=== PATIENT | female | born 1965 | race African-American/Black ===

== ENCOUNTER 2024-09-21 13:39 | Emergency (ER) | payer OTHER, SELFPAY ==
[2024-09-21] VITALS (20 sets, daily range): BP systolic 162–193; BP diastolic 78–98; PULSE 87–104; RESP 18; TEMP 37.1; O2SAT 95–100; BMI 33.2
--- NOTE | 2024-09-21 14:08 | CRLHL7_ITS ---
For Patients: As a result of the Century Cures Act, medical imaging exams and procedure reports are released immediately into your electronic medical record. You may view this report before your referring provider. If you have questions, please contact your health care provider. INDICATION: Fall. COMPARISON: None available. TECHNIQUE: CT of the cervical spine without intravenous contrast. Please note that all CT scans at this facility use dose modulation, iterative reconstruction, and/or weight-based dosing when appropriate to reduce radiation dose to as low as reasonably achievable. FINDINGS: Alignment: No significant spondylolisthesis, widening of the intervertebral disc spaces, interfacetal joints or interspinous distances. Vertebrae: Vertebral bodies, pedicles, laminae, articular, transverse and spinous processes are intact. 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 Soft Tissues: No perivertebral edema or hemorrhage. Extraspinal Anatomy: No significant findings. IMPRESSION: No acute traumatic injury is identified. Incidental findings described in the body of the report. Please note that all CT scans at this facility use dose modulation, iterative reconstruction, and/or weight-based dosing when appropriate to reduce radiation dose to as low as reasonably achievable. Dictated by Kem Stanley MD @ 09/21/2024 3:08:06 PM (Electronically Signed)
--- NOTE | 2024-09-21 14:09 | CRLHL7_ITS ---
For Patients: As a result of the Century Cures Act, medical imaging exams and procedure reports are released immediately into your electronic medical record. You may view this report before your referring provider. If you have questions, please contact your health care provider. INDICATION: FALL, STROKE LIKE SYMPTOMS. TECHNIQUE: CT head without contrast. COMPARISON: None. FINDINGS: CSF spaces: Within normal limits for age. Brain parenchyma and extra-axial spaces: No evident territorial loss of neal-white differentiation to suggest an acute transcortical infarction. No sign of acute ischemia. No sign of mass, hemorrhage, or midline shift. No extra-axial fluid collection. Skull base and calvarium: The visualized paranasal sinuses and mastoid air cells demonstrate no acute or significant findings. The visualized orbits are grossly unremarkable. No skull fractures. Mild focal right occipital scalp thickening, nonspecific IMPRESSION: Unremarkable noncontrast head CT. No sign of acute ischemia or intracranial hemorrhage. Please note that all CT scans at this facility use dose modulation, iterative reconstruction, and/or weight-based dosing when appropriate to reduce radiation dose to as low as reasonably achievable. Dictated by Geo Rodriguez MD @ 09/21/2024 3:03:28 PM (Electronically Signed)
--- NOTE | 2024-09-21 14:13 | ED_ITS ---
HPI - General Adult General Chief complaint: Headache/Migraine Stated complaint: Found on floor 09/19-left side numb, headache Time Seen by Provider: 09/21/24 13:50 History of Present Illness HPI narrative: This is a very pleasant 59-year-old female who presents to the ER today with her friends. History is obtained in part from the patient and in part from her friends. She has a past medical history of diabetes, hypertension, dyslipidemia. She is currently on insulin, a statin, and amlodipine. She also reports that she had a history of angina some years ago that was treated medically at home in [facility]. She is here visiting her friends over the short term. She was at her friend's house sleeping. Two nights ago she got out of bed and fell. It is unclear why she fell. At times she says she does not remember falling so, and other times she says she remembers falling and recalls that she did not hit her head. Ever since falling she has had weakness and numbness on the left side of her body (face, arm, and leg). She has also had a headache. Symptoms are not getting better. Headache is actually getting slightly worse. Her friends convinced her to come here to the ER today. She does not take any anticoagulants. No history of stroke. No other previous focal weaknesses. She was not sick before she fell. No recent cough or fever. No vomiting or diarrhea. Related Data Home Medications ?Medication ?Instructions ?Recorded ?Confirmed No Known Home Medications 09/21/24 09/21/24 Allergies Allergy/AdvReac Type Severity Reaction Status Date / Time No Known Drug Allergies Allergy Verified 09/21/24 13:51 PFSH [facility] Social History Smoking Status: Never smoker How often do you have a drink containing alcohol: never AUDIT-C Alcohol total score: 0 Non-prescribed substance use: denies use Exam Narrative: Exam Narrative: Primary Survey: A- patent. Speaking clearly. Phonation normal. No stridor. B- breathing easily. Lung sounds clear and equal. Oxygen saturation normal on room air C- no active bleeding. Blood pressure stable. Symmetric pulses and cap refill in 4 extremities. D- alert and oriented x3. GCS 15. No focal deficits. Constitutional: Appears well-developed and well-nourished. Alert. Conversant. Non toxic. HENT: Head: Atraumatic. Nose: Nose normal. Mouth/Throat: Oral mucosa is clear and moist. no trismus. Pharynx normal. Tonsils symmetric. No tonsillar enlargement, erythema, or exudate. Eyes: Conjunctivae normal. EOM normal. Pupils equal, round, and reactive to light. No scleral icterus. Neck: Normal range of motion. Neck supple. No tracheal deviation present. Cardiovascular: Normal rate, regular rhythm. No gallop. No friction rub. No murmur heard. Symmetric radial and PT artery pulses Pulmonary/Chest: Effort normal. No stridor. No respiratory distress. No wheezes. No rales. No rhonchi . No tenderness. Abdominal: Soft. Bowel sounds normal. No distension. No mass. No tenderness. No rebound. No guarding. Musculoskeletal: RUE: Normal range of motion. No tenderness. No deformity LUE: Normal range of motion. No tenderness. No deformity RLE: Normal range of motion. No edema. No tenderness. No deformity LLE: Normal range of motion. No edema. No tenderness. No deformity Neurological: She is alert and oriented x3. Speech is fluent. She has a pleasant accident but no slurred speech. No dysarthria. No word-finding difficulties. Memory seems intact although she is a bit vague about details of the fall 2 days ago. She has subjective paresthesias affecting her left face including the forehead, cheek, and chin. No obvious facial droop. Tongue protrudes midline. Palate elevates symmetrically. Strength is 5/5 on the right including the deltoid, biceps, triceps, infantryman. Strength is 4+/5 on the left infantryman, biceps, triceps. She is able to hold her arm against gravity but does have some pronator drift and is clearly not as strong on the left that is on the right. She has 5/5 strength in the right leg including the so S, quadriceps, hamstring, gastrocnemius. She has 4/5 strength on the left. She is barely able to lift her leg off the bed. Hamstring strength is also weaker on the left than on the right. Deep tendon reflexes are 1+/4 bilaterally in the patella and biceps. Subjective tingling paresthesias involving her entire left arm including C5-T1. Also tingling paresthesias affecting her entire left leg but seems to be more numb in the left foot than closer to left thigh. NIHSS =6 Skin: Skin is warm and dry. No rash noted. No pallor. Normal capillary refill. Psychiatric: Normal mood. Normal affect. Const: Vital Signs, click to edit/add: Vital Signs - 24 hr 09/21/24 13:42 Temperature 98.7 F Pulse Rate [Right Pulse Oximeter] 94 Respiratory Rate 18 Blood Pressure [Ri ght Forearm] 179/80 H Pulse Oximetry 96 Oxygen Delivery Me thod Room Air Course Vital Signs Vital signs: Initial Vital Signs Temperature 98.7 F 09/21/24 13:42 Temperature Source Temporal Artery Scan 09/21/24 13:42 Pulse Rate 94 09/21/24 13:42 Pulse Rhythm Regular 09/21/24 13:42 Pulse Strength 3+ Normal 09/21/24 13:42 Respiratory Rate 18 09/21/24 13:42 Blood Pressure 179/80 H 09/21/24 13:42 Blood Pressure Mean 113 H 09/21/24 13:42 Blood Pressure Position Sitting 09/21/24 13:42 Pulse Oximetry 96 09/21/24 13:42 Oxygen Delivery Method Room Air 09/21/24 13:42 Vital Signs Temperature 98.7 F 09/21/24 13:42 Pulse Rate 94 09/21/24 13:42 Respiratory Rate 18 09/21/24 13:42 Blood Pressure 179/80 H 09/21/24 13:42 Pulse Oximetry 96 09/21/24 13:42 Oxygen Delivery Method Room Air 09/21/24 13:42 Temperature 98.7 F 09/21/24 13:42 Pulse Rate 94 09/21/24 13:42 Respiratory Rate 18 09/21/24 13:42 Blood Pressure 179/80 H 09/21/24 13:42 Pulse Oximetry 96 09/21/24 13:42 Oxygen Delivery Method Room Air 09/21/24 13:42 Medical Decision Making MDM Narrative Medical decision making narrative: This is a 59-year-old female with a past medical history of hypertension, diabetes, dyslipidemia, and possibly angina/coronary artery disease presenting to the ER today with her friends with concern for headache and left-sided numbness and weakness that have been ongoing since she fell getting out of bed 2 nights ago. Initial differential includes acute ischemic stroke leading to her fall and neurologic symptoms. Also consider acute intraparenchymal hemorrhage bleeding symptoms. Also consider possible traumatic injury such as if she hit her head and suffered a subdural wall falling 2 nights ago. Initial neuro exam does reveal left sided numbness including her face, arm and leg. She has left-sided weakness of the arm and leg but no facial droop. NIH stroke scale 6 by my exam She would be well outside the window for intra venous thrombi lytic or intra- arterial intervention since symptoms began 48 hours ago. We sent this patient for a stat noncontrast head CTs look for intracranial hemorrhage. CT read as negative by Radiology. By my read I wonder if there may be a tiny hyperdensity in the right subcortical tissue. Discussed with stroke neurology. He was able to review the images and has concern but is not convinced that this represents an intraparenchymal hemorrhage. Stroke Neurology recommends that we obtain a brain MRI to look for possible bleed or subacute infarct. CT angiogram of her head neck is also obtained here in the ER but results are pending at the time of this dictation. Presentation would be more suggestive for an acute stroke event rather than a subarachnoid hemorrhage. Blood pressure is elevated at about 180/80. Will allow permissive hypertension for now especially in the setting of a potential subacute infarct. If she has proven to have hemorrhage may need blood pressure control. Laboratory workup is reassuring. She does have hyperglycemia but no evidence for DKA or hyperosmolar syndrome. EKG shows sinus rhythm no ischemia. I have discussed this patient, with my partner Dr. Grant. He will follow up after the MRI and CT angios are resulted. He will consult again with Stroke Neurology to determine plan of care. Anticipate that she will likely be admitted here in [facility] for treatment and workup of an acute ischemic stroke and/or the treatment of a subacute intraparenchymal hemorrhage. Also had a conversation with our hospitalist, Dr. Galo at 4:15 p.m.. She is aware of the patient and will anticipate a phone call from Dr. Grant to discuss ultimate disposition and plan. Clinical impression 1. Acute left-sided weakness and numbness, suspect acute/subacute ischemic infarct 2. Head ache 3. Hypertension 4. Hyperglycemia Lab Data Labs: Lab Results 09/21/24 Range/Units 14:07 WBC 5.23 (4.50-11.00) K/uL RBC 4.74 (4.00-5.20) m/uL Hgb 13.7 (12.0-16.0) gm/dL Hct 41.4 (33.0-51.0) % MCV 87 (80-100) fL MCH 29 (26-34) pg MCHC 33 (32-36) gm/dL RDW Coeff of Liu 12.5 (11.5-15.5) % Plt Count 165 (140-440) K/uL Neut % (Auto) 40.3 L (42.0-72.0) % Lymph % (Auto) 49.3 H (20-44) % Glynn % (Auto) 6.9 (0.0-11.0) % Eos % (Auto) 3.1 (0.0-7.0) % Baso % (Auto) 0.2 (0.0-3.0) % Neut # (Auto) 2.10 (1.7-7.0) K/uL Lymph # (Auto) 2.60 (0.90-2.90) K/uL Glynn # (Auto) 0.40 (0.00-0.90) K/UL Eos # (Auto) 0.16 (0.00-0.50) K/uL Baso # (Auto) 0.01 (0.00-0.30) K/uL Abs Immat Gran (auto) 0.01 (0.00-0.30) K/uL Imm/Tot Granulo (auto) 0.2 % INR 0.96 (0.91-1.10) Sodium 137 (135-149) mmol/L Potassium 4.0 (3.6-5.1) mmol/L Chloride 102 (96-114) mmol/L Carbon Dioxide 24 (20-32) mmol/L Anion Gap 11 (7-15) mEq/L BUN 23 (7-30) mg/dL Creatinine 0.9 (0.5-1.5) mg/dL Estimated Creat Clear 42.44 Estimated GFR 73 ml/min Glucose 278 H (60-115) mg/dL Lactate 1.5 (0.5-1.9) mmol/L Calcium 10.3 (8.4-10.6) mg/dL Troponin I 0.02 (0.01-0.04) ng/mL NT-Pro-B Natriuret Pep 214 pg/mL Imaging Data CT scan - head: Attestation: I have reviewed the pertinent imaging results. My impression: possible tiny hyperdensity in right subcortical tissue/thalamus. tiny hemorrhage? Radiologist's impression: IMPRESSION: Unremarkable noncontrast head CT. No sign of acute ischemia or intracranial hemorrhage. ECG Data Attestation: I personally reviewed and interpreted this ECG as follows: Interpretation: A sinus rhythm with occasional PVCs Rate: 94 DC: 178 QRS axis: Normal axis. ST segment/T wave: Nonspecific ST depression in lead 1, 2, AVF. No ST segment elevation or depression. QTc: 425 Discharge Plan Discharge Prescriptions: No Action No Known Home Medications Follow Up/Referrals: Provider,Not a Local [Primary Care Provider] -
--- NOTE | 2024-09-21 14:16 | CRLHL7_ITS ---
For Patients: As a result of the Cures Act, medical imaging exams and procedure reports are released immediately into your electronic medical record. You may view this report before your referring provider. If you have questions, please contact your health care provider. INDICATION: Fall, headache, left-sided weakness TECHNIQUE: Chest 2 views. COMPARISON: None. FINDINGS: Cardiovascular and mediastinum: Heart size and vasculature are normal in caliber and appearance. Lungs and pleural spaces: Lungs are clear. No sign of infiltrate or mass. No sign of pleural effusion. No pneumothorax. Bones and soft tissues: No significant findings. IMPRESSION: No acute or significant findings. Dictated by Shiv Pickard MD @ 09/21/2024 3:22:11 PM (Electronically Signed)
[2024-09-21 15:06] LABS: Lactate* 1.5 mmol/L (0.5-1.9)
--- NOTE | 2024-09-21 15:09 | CRLHL7_ITS ---
For Patients: As a result of the Century Cures Act, medical imaging exams and procedure reports are released immediately into your electronic medical record. You may view this report before your referring provider. If you have questions, please contact your health care provider. INDICATION: Acute stroke, left-sided numbness. TECHNIQUE: CTA neck with contrast bolus tracking, 3D angiographic rendering using maximum intensity projection (MIP) and images permanently archived. FINDINGS: There is ulcerated atherosclerotic plaque in the proximal right internal carotid artery resulting in a severe stenosis, 70 percent by NASCET. There is no significant left carotid artery stenosis or dissection. There is no significant vertebral artery stenosis or dissection. The soft tissues of the neck are within normal limits. The cervical spine is in normal alignment. Degenerative changes are noted in the cervical spine. IMPRESSION: Severe proximal right ICA stenosis, 70 percent by NASCET, due to ulcerated plaque. Please note that all CT scans at this facility use dose modulation, iterative reconstruction, and/or weight-based dosing when appropriate to reduce radiation dose to as low as reasonably achievable. Dictated by Yadiel Dotson MD @ 09/22/2024 6:14:31 AM (Electronically Signed)
--- NOTE | 2024-09-21 15:09 | CRLHL7_ITS ---
For Patients: As a result of the Century Cures Act, medical imaging exams and procedure reports are released immediately into your electronic medical record. You may view this report before your referring provider. If you have questions, please contact your health care provider. INDICATION: Acute stroke, left-sided numbness. TECHNIQUE: CTA head with contrast bolus tracking, 3D angiographic rendering using maximum intensity projection (MIP) and images permanently archived. FINDINGS: There is heavily calcified, highly irregular plaque around both carotid siphons resulting in [id number] stenoses. There is a severe stenosis of the ophthalmic segment of the right internal carotid artery. The anterior right M2 has an occlusion or near occlusion at its origin. The vertebrobasilar system is small. Both posterior cerebral arteries are markedly irregular. No aneurysm is identified. IMPRESSION: Occlusion/near occlusion of the anterior division right M2. Extensive intracranial atherosclerotic disease around the carotid siphons. Severe ophthalmic right ICA stenosis. Please note that all CT scans at this facility use dose modulation, iterative reconstruction, and/or weight-based dosing when appropriate to reduce radiation dose to as low as reasonably achievable. Dictated by Yadiel Dotson MD @ 09/22/2024 6:11:55 AM (Electronically Signed)
[2024-09-21 15:10] LABS: Basophils Absolute Auto 0.01 K/uL (0.00-0.30); Basophils Percent Auto 0.2 % (0.0-3.0); Eosinophils Absolute Auto 0.16 K/uL (0.00-0.50); Eosinophils Percent Auto 3.1 % (0.0-7.0); Hematocrit 41.4 % (33.0-51.0); Hemoglobin* 13.7 gm/dL (12.0-16.0); Immature Granulocytes Abs Auto 0.01 K/uL (0.00-0.30); Immature Granulocytes Pct Auto 0.2 %; Lymphocytes Percent Auto 49.3 % (20-44); Mean Corpuscular HGB Conc 33 gm/dL (32-36); Mean Corpuscular Hemoglobin 29 pg (26-34); Mean Corpuscular Volume 87 fL (80-100); Monocytes Percent Auto 6.9 % (0.0-11.0); Neutrophils Percent Auto 40.3 % (42.0-72.0); Platelet Count* 165 K/uL (140-440); RDW Coefficient of Variation % 12.5 % (11.5-15.5); Red Blood Count 4.74 m/uL (4.00-5.20); White Blood Count* 5.23 K/uL (4.50-11.00)
[2024-09-21 15:13] LABS: Slide Review Reflex No
[2024-09-21 15:15] LABS: Chloride* 102 mmol/L (96-114); Sodium* 137 mmol/L (135-149)
[2024-09-21 15:18] LABS: Anion Gap 11 mEq/L (7-15); Blood Urea Nitrogen* 23 mg/dL (7-30); Carbon Dioxide* 24 mmol/L (20-32); Creatinine* 0.9 mg/dL (0.5-1.5); Est. Creatinine Clearance* 42.44; Estimated Glomerular Filt Rate 73 ml/min
[2024-09-21 15:19] LABS: Calcium* 10.3 mg/dL (8.4-10.6); Glucose* 278 mg/dL (60-115)
[2024-09-21 15:30] LABS: NT Pro B Type NatriureticPept* 214 pg/mL; Troponin I* 0.02 ng/mL (0.01-0.04)
[2024-09-21 15:34] LABS: INR 0.96 (0.91-1.10); Prothrombin Time 13.3 Seconds
--- NOTE | 2024-09-21 15:52 | CRLHL7_ITS ---
For Patients: As a result of the Century Cures Act, medical imaging exams and procedure reports are released immediately into your electronic medical record. You may view this report before your referring provider. If you have questions, please contact your health care provider. INDICATION: Left-sided weakness. TECHNIQUE: Multiplanar multisequence noncontrast MR images of the brain. Comparison CT brain 09/21/2024. FINDINGS: Minimal diffuse cerebral volume loss. No mass effect or midline shift. Small chronic infarction inferior right cerebellar hemisphere. Scattered FLAIR hyperintensities in the supratentorial white matter and katelyn, typical for mild chronic microvascular ischemic changes. No diffusion restriction to suggest acute infarction. No intracranial hemorrhage or pathologic extra-axial fluid collection. Major arterial flow voids at the skullbase are preserved. Globes are symmetric. Paranasal sinuses are well aerated. The mastoid air cells are clear. IMPRESSION: 1. No acute intracranial abnormality. 2. Chronic infarction right cerebellar hemisphere. 3. Mild chronic microvascular ischemic changes. Dictated by Greg Pavon MD @ 09/21/2024 5:31:44 PM (Electronically Signed)
[2024-09-21] MEDS: CLOPIDOGREL 300 MG TABLET PO (18:51)
[2024-09-21] MEDS: ASPIRIN 81 MG TAB.CHEW 324 MG PO (18:51)
--- NOTE | 2024-09-21 19:32 | ED.NURSE ---
Note provided for patient for flights.
--- NOTE | 2024-09-21 19:34 | PM.IMCN1 ---
Date of Consult Consult date: 09/21/24 Requesting Physician: Other Primary Care Provider: Not a Local Provider Consult Narrative Narrative: Abel Arrington is a 59 year old female who presented to the ED with concerns regarding a headache and a weak left leg for two days. Two nights prior to arrival in the ED she fell and couldn't get up at about 2 am. She thinks she was getting up to go to the bathroom and the next thing she knew she was on the floor. She is not sure if she hit her head but she did have a headache. No abrasions, bleeding or acute skeletal concerns. She was helped back to bed by her friend and slept the rest of the night. Over the past two days she has a wobbly left leg but is able to walk and has not fallen. She has good feeling without neuropathy. she has had a headache on the left side of her head; throbbing in nature. no visual changes. No skipped beats or chest pain. no JOSEPH or cough. I reviewed the entirety of the record. I'm glad to see ED ordered and was able to complete an MRI. Those results are reviewed. Her vitals and labs are reviewed. I personally examined the patient and walked her around the ED department. I spoke with her two friends bedside. The patient reports her symptoms are better today than yesterday. She has 3-4/5 muscle strength on left compared to 5/5 on right. She has no nystagmus and CN intact. no facial palsy; speech has an accent but no dysarthria. MRI 1. No acute intracranial abnormality. 2. Chronic infarction right cerebellar hemisphere. 3. Mild chronic microvascular ischemic changes. 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 Intracranial atherosclerotic disease, including [id number] atherosclerotic stenosis of the cavernous internal carotid arteries as well as severe stenosis of the posterior cerebral artery P2 segments. Nuwz-qw-[id number] (approximately 50 percent) proximal right cervical internal carotid artery stenosis secondary to noncalcified atherosclerotic plaque. Right upper lobe pulmonary nodule measuring 8 mm (image 850). Follow-up chest CT is recommended for further evaluation. Discussed options for the patient -be admitted for overnight observation, telemetry, echo, lipids, A1C, glucose management. PT/OT, teleneuro consult. -be discharged from ED and follow-up with [facility] in [place] or [place]. -she has only two weeks left before her return to [facility], she has no health insurance for medical care and preferred to go home with her friends. Her health care is provided free in [facility]. -strict precautions to return immediately with new neuro symptoms -take a daily baby aspirin. plavix was administered tonight but patient states she can not afford. -patient and two friends all agreeable to plan [facility] Social History Smoking Status: Never smoker How often do you have a drink containing alcohol: never AUDIT-C Alcohol total score: 0 Non-prescribed substance use: denies use Meds Home Medications and Allergies Home Medications ?Medication ?Instructions ?Recorded ?Confirmed ?Type insulin NPH and regular human subcut 09/21/24 History losartan .ROUTE 09/21/24 History Allergies Allergy/AdvReac Type Severity Reaction Status Date / Time No Known Drug Allergies Allergy Verified 09/21/24 13:51 Exam Const: Vital Signs, click to edit/add: Vital Signs - 24 hr 09/21/24 13:42 09/21/24 14:17 09/21/24 14:45 Temperature 98.7 F Pulse Rate 90 Pulse Rate [Right Pulse Oximeter] 94 Respiratory Rate 18 Blood Pressure 179/80 H Blood Pressure [Ri ght Forearm] 179/80 H Pulse Oximetry 96 97 Oxygen Delivery Me thod Room Air 09/21/24 15:01 09/21/24 15:02 09/21/24 15:15 Temperature Pulse Rate 96 96 96 Pulse Rate [Right Pulse Oximeter] Respiratory Rate Blood Pressure 162/78 H Blood Pressure [Ri ght Forearm] Pulse Oximetry 100 100 100 Oxygen Delivery Me thod 09/21/24 15:17 09/21/24 15:30 09/21/24 15:32 Temperature Pulse Rate 94 97 95 Pulse Rate [Right Pulse Oximeter] Respiratory Rate Blood Pressure 169/83 H 181/79 H Blood Pressure [Ri ght Forearm] Pulse Oximetry 98 96 97 Oxygen Delivery Me thod 09/21/24 15:45 09/21/24 15:47 09/21/24 17:07 Temperature Pulse Rate 100 101 H 87 Pulse Rate [Right Pulse Oximeter] Respiratory Rate Blood Pressure 189/98 H 193/88 H Blood Pressure [Ri ght Forearm] Pulse Oximetry 98 99 98 Oxygen Delivery Me thod 09/21/24 17:08 09/21/24 17:15 09/21/24 17:22 Temperature Pulse Rate 100 104 H 97 Pulse Rate [Right Pulse Oximeter] Respiratory Rate Blood Pressure 177/82 H Blood Pressure [Ri ght Forearm] Pulse Oximetry 99 97 99 Oxygen Delivery Nm thod 09/21/24 17:30 09/21/24 17:42 09/21/24 17:45 Temperature Pulse Rate 96 96 95 Pulse Rate [Right Pulse Oximeter] Respiratory Rate Blood Pressure 167/88 H Blood Pressure [Ri ght Forearm] Pulse Oximetry 99 99 98 Oxygen Delivery Nm thod 09/21/24 18:00 09/21/24 18:02 Temperature Pulse Rate 89 95 Pulse Rate [Right Pulse Oximeter] Respiratory Rate Blood Pressure 172/84 H Blood Pressure [Ri ght Forearm] Pulse Oximetry 95 97 [facility] Labs: Short CBC 09/21/24 Range/Units 14:07 WBC 5.23 (4.50-11.00) K/uL Hgb 13.7 (12.0-16.0) gm/dL Hct 41.4 (33.0-51.0) % Plt Count 165 (140-440) K/uL BMP 09/21/24 14:07 Sodium 137 Potassium 4.0 Chloride 102 Carbon Dioxide 24 BUN 23 Creatinine 0.9 Glucose 278 H Calcium 10.3 Cardiac Enzymes 09/21/24 Range/Units 14:07 Troponin I 0.02 (0.01-0.04) ng/mL
== END 2024-09-21 19:34 | disposition home or self-care (01) ==
PROVIDERS: Emergency Medicine; Emergency Provider Student in an Organized Health Care Education/Training Program
DX: R53.1 Weakness (principal); R20.0 Anesthesia of skin; R51.9 Headache, unspecified; I10 Essential (primary) hypertension; R73.9 Hyperglycemia, unspecified
CPT/HCPCS: 36415; 70450; 70496; 70498; 70551; 71046; 72125; 80048; 83605; 83880; 84484; 85025; 85610; 93005; 99284; 99285; A9270; Q9967